=== PATIENT | female | born 1995 | race Caucasian/White ===

== ENCOUNTER 2021-08-13 07:10 | Inpatient (IN) | payer BC ==
[~2021-08-13 07:10] MED LIST: Bupivacaine 0.25% 10 ML SDV ONE
[2021-08-13] MEDS ORDERED: Nalbuphine HCl 10 MG/ 1ML Amp IVPUSH PRN (07:59)
[2021-08-13] MEDS ORDERED: Ampicillin 2 GM in Sodium Chloride 0.9% 100 ML IV ONE (07:59)
[2021-08-13] MEDS ORDERED: Lidocaine 1% 50 ML MDV INJECT ONE (07:59)
[2021-08-13] MEDS ORDERED: Oxytocin/Lactated Ringers 10 UNIT/1,000 ML BAG IV SCH ×2 (08:00)
[2021-08-13] MEDS: Lactated Ringers 1,000 ML IV SCH ×3 (08:10→13:33)
[2021-08-13] MEDS ORDERED: Diphtheria,Pertussis(Acell),Tetanus Vaccine 0.5 ML Syringe IM ONE (08:50)
[2021-08-13] MEDS ORDERED: Sodium Chloride 0.9% 10 ML Syringe FLUSH SCH (09:00)
[2021-08-13] MEDS ORDERED: diphenhydrAMINE 50 MG/ML SDV IVPUSH PRN ×2 (09:14→12:53)
[2021-08-13] MEDS ORDERED: ePHEDrine 50 MG/ML SDV IVPUSH PRN ×2 (09:14→12:53)
[2021-08-13] MEDS ORDERED: fentaNYL 100 MCG/2 ML SDV EPIDUR PRN ×2 (09:14→12:53)
[2021-08-13] MEDS ORDERED: Bupivacaine/fentaNYL/NS 100 ML Bag EPIDUR PRN ×2 (09:14→12:53)
[2021-08-13] MEDS ORDERED: Ampicillin 1 GM in Sodium Chloride 0.9% 100 ML IV SCH (12:00)
[2021-08-13] MEDS ORDERED: Witch Hazel Medicated Pads 40/Jar TOP PRN ×2 (16:39)
[2021-08-13] MEDS ORDERED: Benzocaine/Menthol 20%-0.5% Spray 78 GM Cannister TOP PRN ×2 (16:39)
[2021-08-13] MEDS ORDERED: Ibuprofen 600 MG Tab PO PRN (16:39)
[2021-08-15] MEDS ORDERED: Diphtheria,Pertussis(Acell),Tetanus Vaccine 0.5 ML Syringe IM ONE ×2 (11:55→12:00)
== END 2021-08-15 12:30 | disposition home or self-care (01) | DRG 560 ==
LOC: JD.OB 07:10 → OBSVTOIN 16:09 → JD.OB 16:09
PROVIDERS: ADMIT Obstetrics & Gynecology; ATTEND Obstetrics & Gynecology
PROC: 10E0XZZ Delivery of Products of Conception, External Approach (ICD-10-PCS; principal; 2021-08-13)
PROC: 10907ZC Drainage of Amniotic Fluid, Therapeutic from Products of Conception, Via Natural or Artificial Opening (ICD-10-PCS; 2021-08-13)
PROC: 3E033VJ Introduction of Other Hormone into Peripheral Vein, Percutaneous Approach (ICD-10-PCS; 2021-08-13)
PROC: 0UQMXZZ Repair Vulva, External Approach (ICD-10-PCS; 2021-08-13)
PROC: 3E0R3BZ Introduction of Anesthetic Agent into Spinal Canal, Percutaneous Approach (ICD-10-PCS; 2021-08-13)
PROC: 00HU33Z Insertion of Infusion Device into Spinal Canal, Percutaneous Approach (ICD-10-PCS; 2021-08-13)
DX: O70.0 First degree perineal laceration during delivery (principal); Z37.0 Single live birth; Z3A.40 40 weeks gestation of pregnancy
CPT/HCPCS: 36415; 51701; 59025; 59409; 85025; 85461; 86592; 86850; 86900; 86901; 90471; 90715; A9270-GY; J0290; J2590; J2790; J3010; J3490; J7120

== ENCOUNTER 2024-01-09 20:51 | Emergency (ER) | payer SELFPAY ==
[2024-01-09] MEDS ORDERED: Fluorescein 1 MG Ophth Strip ONE (21:14)
== END 2024-01-09 21:37 | disposition home or self-care (01) ==
LOC: JD.ED 20:51
DX: S05.02XA Injury of conjunctiva and corneal abrasion without foreign body, left eye, initial encounter (principal); E66.9 Obesity, unspecified; W50.0XXA Accidental hit or strike by another person, initial encounter
CPT/HCPCS: 99283